=== PATIENT | male | born 1950 | race Caucasian/White ===

== ENCOUNTER → 2018-12-15 | Outpatient (CLI) | payer MEDICARE ==
--- NOTE | 2018-12-15 16:55 | RAD ---
EXAM: Chest, 2 views. HISTORY: Cigarette smoking history. COMPARISON: None. FINDINGS: 2 views of chest are obtained. There is no infiltrate, pleural effusion or pneumothorax. There is a calcified renal within the left upper lobe. There is suspected bilateral infrahilar atelectasis or scarring. The heart is normal in size. IMPRESSION: No acute pulmonary finding. Electronically signed by: Tayler Garcias MD (12/15/2018 4:52 PM) [id number]
== END | disposition home or self-care (01) ==
LOC: RAD 13:57
PROVIDERS: ATTEND Physician Assistant
DX: L40.9 Psoriasis, unspecified (principal); R05 Cough; N28.89 Other specified disorders of kidney and ureter
CPT/HCPCS: 71046; 86705; 86709; 86803; 87340